=== PATIENT | female | born 1995 | race Caucasian/White ===

== ENCOUNTER 2021-02-08 16:41 | Emergency (ER) | payer SELFPAY ==
[~2021-02-08] VITALS: Ht 162.6 cm; Wt 59.0 kg
[2021-02-08] MEDS ORDERED: HYDR-3980 PO (17:06)
--- NOTE | 2021-02-08 17:34 | NUR ---
Patient discharged to home in stable condition. Written and verbal after care instructions given. Patient verbalizes understanding of instructions. Stressed follow up or return to ER for worsening s/s.pt walks in steady gait.
== END 2021-02-08 17:35 | disposition home or self-care (01) ==
LOC: ER 16:45
DX: S16.1XXA Strain of muscle, fascia and tendon at neck level, initial encounter (principal); V43.53XA Car driver injured in collision with pick-up truck in traffic accident, initial encounter; Y92.411 Interstate highway as the place of occurrence of the external cause
CPT/HCPCS: A4663